=== PATIENT | male | born 1955 | race Caucasian/White ===

== ENCOUNTER 2024-02-19 14:03 | Outpatient (CLI) | payer OTHER ==
[~2024-02-19 14:03] MED LIST: Iopamidol 300 61% 100 ML VIAL FS ONE
== END 2024-02-19 14:04 | disposition home or self-care (01) ==
LOC: CSHCT 14:03
PROVIDERS: ATTEND Surgery
DX: K43.9 Ventral hernia without obstruction or gangrene (principal); K59.00 Constipation, unspecified
CPT/HCPCS: 36415; 74177; 82565

== ENCOUNTER 2024-03-14 15:18 | Outpatient (CLI) | payer OTHER ==
[2024-03-14 16:13] LABS: #Basophils 0.06 10x3/uL (0.0-0.2); #Eosinophils 0.26 10x3/uL (0.0-0.5); #Monocytes 1.12 10x3/uL (0.0-1.1); #Neutrophils 6.26 10x3/uL (1.5-8.4); %Basophils 0.5 % (0.0-2.0); %Eosinophils 2.3 % (0.0-6.0); %Lymphocytes 30.7 % (18.0-47.0); Hematocrit 44.7 % (38.8-50.0); Hemoglobin 15.3 g/dL (13.5-17.5); Mean Corpuscular HGB CONC 34.2 g/dL (32.0-36.0); Mean Corpuscular Hemoglobin 31.7 pg (27.0-33.0); Mean Corpuscular Volume 92.5 fL (81.2-95.1); Platelet Count 263 10x3/uL (150-450); RBC Distribution Width 13.3 % (11.5-14.5); Red Blood Cell (RBC) Count 4.83 10x6/uL (4.32-5.72); White Blood Cell (WBC) Count 11.2 10x3/uL (3.5-10.5)
[2024-03-14 16:24] LABS: Anion Gap 14 mmol/L (10-20); BUN (Urea Nitrogen) 18 mg/dL (8.4-25.7); Calc. Creatinine Clearance 0 mL/min (70-130); Calcium 9.8 mg/dL (7.8-10.44); Carbon Dioxide 21 mmol/L (23-31); Chloride 107 mmol/L (98-107); Estimated GFR 77; Glucose 89 mg/dL (80-115); Potassium 4.3 mmol/L (3.5-5.1); Sodium 138 mmol/L (136-145)
== END 2024-03-14 15:19 | disposition home or self-care (01) ==
LOC: CSHLAB 15:18
PROVIDERS: ATTEND Surgery
DX: Z01.818 Encounter for other preprocedural examination (principal); K43.2 Incisional hernia without obstruction or gangrene
CPT/HCPCS: 80048; 85025; 93005; 93010

== ENCOUNTER 2024-03-19 07:54 | Day surgery (SDC) | payer OTHER ==
[2024-03-14 15:44] VITALS: BMI 29.9
[2024-03-19] MEDS ORDERED: Midazolam HCl 2 mg/2 ml Vial ONE (09:29)
[2024-03-19] MEDS ORDERED: Scopolamine 1 mg/72 hour Patch ONE (09:29)
[2024-03-19] MEDS ORDERED: Bupivacaine/Epinephrine 0.25% 30 ML VIAL ONE ×2 (09:45→09:46)
[2024-03-19] MEDS ORDERED: Famotidine/PF 20 mg/2ml Vial ONE (09:48)
[2024-03-19] MEDS ORDERED: PROPOFOL 20 ML ONE (09:48)
[2024-03-19] MEDS ORDERED: fentaNYL 50 mcg/mL 1 mL Vial ONE ×4 (09:49→12:25)
[2024-03-19] MEDS ORDERED: Rocuronium Bromide 10 MG/ML (10ML VIAL) ONE (09:52)
[2024-03-19] MEDS ORDERED: Lidocaine 2% PF 5 ML VIAL ONE (09:52)
[2024-03-19] MEDS ORDERED: CEFAZOLIN 2 GM VIAL ONE (09:55)
[2024-03-19] MEDS ORDERED: PHENYLEPHRINE-NS 100 MCG/ML 10 ML SYRINGE ONE (10:20)
[2024-03-19] MEDS ORDERED: Dexamethasone 4 mg/ml Vial ONE (10:28)
[2024-03-19] MEDS ORDERED: Ketorolac Tromethamine 30 MG (1 mL) VIAL ONE (10:28)
[2024-03-19] MEDS ORDERED: SUGAMMADEX SODIUM 200 MG/2 ML VIAL ONE (10:28)
[2024-03-19] MEDS ORDERED: Ondansetron PF 4 MG/2 ML Vial ONE (10:28)
[2024-03-19] MEDS ORDERED: Sevoflurane 250 ML INH ANEST BOTTLE ONE (11:11)
[2024-03-19] MEDS ORDERED: oxyCODONE 5 MG TAB ONE (13:02)
== END 2024-03-19 13:40 | disposition home or self-care (01) ==
LOC: CSHSDC 07:54
PROVIDERS: ATTEND Surgery
PROC: 0WQF4ZZ Repair Abdominal Wall, Percutaneous Endoscopic Approach (ICD-10-PCS; principal; 2024-03-19)
DX: K43.9 Ventral hernia without obstruction or gangrene (principal); K57.92 Diverticulitis of intestine, part unspecified, without perforation or abscess without bleeding; Z90.49 Acquired absence of other specified parts of digestive tract; Z96.642 Presence of left artificial hip joint; Z87.891 Personal history of nicotine dependence; Z88.6 Allergy status to analgesic agent
CPT/HCPCS: 49595; C1781; J1100; J1885; J2250; J2405; J2704; J3010; J3490; S2900